=== PATIENT | female | born 2000 | race Two or more races ===

== ENCOUNTER 2021-02-22 16:21 | Inpatient (IN) | payer BC ==
[~2021-02-22] VITALS: Ht 157.5 cm; Wt 79.6 kg
[2021-02-22] MEDS ORDERED: cefTRIAXone 1GM/50ML D5W 50 ML IV ONE (17:00)
[2021-02-22] MEDS ORDERED: metroNIDAZOLE 500MG/100ML 100 ML IV ONE (17:00)
[2021-02-22] MEDS ORDERED: MORPHINE SULFATE INJECTION 2 MG/ML SYRG IV PRN (17:00)
[2021-02-22 17:42] VITALS: BP 128/43
[2021-02-22] MEDS: SODIUM CHLORIDE 0.9% 1,000 ML IV SCH (17:49)
[2021-02-22 18:08] LABS: Hematocrit 40.1 % (36.0-46.0); Hemoglobin 13.6 g/dL (12.2-16.2); Mean Corpuscular Hgb Conc. 33.9 g/dL (32.0-36.0); Mean Corpuscular Volume 85.7 fL (80.0-100.0); Red Blood Cells 4.67 10^6/uL (4.0-5.20); Red Cell Distribution Width 12.6 % (11.8-14.3); White Blood Cell 12.8 10^3/uL (4.4-10.8)
[2021-02-22 18:19] LABS: Albumin 3.3 g/dL (3.4-5.0); Calcium 8.9 mg/dL (8.5-10.1)
[2021-02-22 18:22] VITALS: BP 124/47
[2021-02-22] MEDS: ACETAMINOPHEN 325 MG TAB PO PRN ×2 (18:22→23:14)
[2021-02-22 18:23] LABS: BUN/Creatinine Ratio 17.2; Bilirubin, Total 0.4 mg/dL (0.2-1.0)
[2021-02-22 18:24] LABS: INR 1.1 (0.9-1.15); Partial Thromboplastin Time 30.1 sec (23.6-33.0)
[2021-02-22 18:26] LABS: Basophils % (manual) 0 (0.0-2.0); Blast Cells 0; Eosinophils % (manual) 0 (0-7); Myelocytes % 0; Promyelocytes % 0; Reactive Lymphocytes 0
[2021-02-22 19:00] LABS: Band Neutrophils % (manual) 3; Lymphocytes % (manual) 18 (10.0-50.0); Metamyelocytes % 2; Monocytes % (manual) 3 (0-12)
[2021-02-22] MEDS: metroNIDAZOLE 500MG/100ML 100 ML IV SCH (22:57)
[2021-02-23 05:00] VITALS: BP 132/67
[2021-02-23] MEDS: metroNIDAZOLE 500MG/100ML 100 ML IV SCH ×3 (06:31→22:00)
[2021-02-23 06:59] LABS: Urine Bacteria FEW /hpf (None Seen); Urine Blood Negative /uL (Negative); Urine Mucus FEW (None Seen); Urine Specific Gravity 1.017 (1.001-1.035); Urine WBC 1 /hpf (0 - 5)
[2021-02-23] MEDS: SODIUM CHLORIDE 0.9% 1,000 ML IV SCH ×2 (07:57→16:40)
[2021-02-23] MEDS: cefTRIAXone 1GM/50ML D5W 50 ML IV SCH (08:47)
[2021-02-23 09:00] VITALS: BP 122/78
[2021-02-23] MEDS ORDERED: ACET-1304 PO (10:07)
[2021-02-23] MEDS ORDERED: fentaNYL CITRATE 100 MCG/2 ML VL ONE (10:23)
[2021-02-23] MEDS ORDERED: MIDAZOLAM HCL 2MG/2ML 2ml VIAL (1mg/ml) ONE ×2 (10:24→11:25)
[2021-02-23] MEDS ORDERED: HYDROmorphone HCL 2 MG/ML VL ONE (10:58)
[2021-02-23] MEDS ORDERED: PROPOFOL 10 MG/ML 20 ML IV ONE (11:14)
[2021-02-23] MEDS ORDERED: ONDANSETRON HCL 4 MG/2 ML VIAL IV PRN (11:15)
[2021-02-23] MEDS ORDERED: HYDROmorphone HCL 2 MG/ML VL IV PRN (11:15)
[2021-02-23] MEDS ORDERED: NEOSTIGMINE 1 MG/ML INJ (10mg/10ML VIAL) IV ONE (15:46)
[2021-02-23] MEDS ORDERED: ROCURONIUM 10MG/ML 10ML VIAL IV ONE (15:46)
[2021-02-23] MEDS ORDERED: GLYCOPYRROLATE 0.2 MG/ML 1ML VIAL IV ONE (15:46)
[2021-02-23] MEDS ORDERED: ONDANSETRON HCL 4 MG/2 ML VIAL IV ONE (15:46)
[2021-02-23] MEDS: ONDANSETRON HCL 4 MG/2 ML VIAL IV PRN (15:51)
[2021-02-23] MEDS: MORPHINE SULFATE INJECTION 2 MG/ML SYRG IV PRN ×2 (15:51→20:48)
[2021-02-23 17:00] VITALS: BP 104/54
[2021-02-23 22:00] VITALS: BP 106/55
[2021-02-24] MEDS: SODIUM CHLORIDE 0.9% 1,000 ML IV SCH (01:08)
[2021-02-24 05:00] VITALS: BP 111/72
[2021-02-24] MEDS: MORPHINE SULFATE INJECTION 2 MG/ML SYRG IV PRN ×2 (05:32→14:56)
[2021-02-24] MEDS: metroNIDAZOLE 500MG/100ML 100 ML IV SCH ×3 (05:32→21:04)
[2021-02-24 05:49] LABS: Calcium 8.4 mg/dL (8.5-10.1); Potassium 3.9 mmol/L (3.5-5.1)
[2021-02-24 05:56] LABS: Basophils # (auto) 0 10 ^3/uL (0-0.2); Basophils % (auto) 0.6 % (0.0-2.0); Eosinophils # (auto) 0.1 10 ^3/uL (0-0.8); Eosinophils % (auto) 0.9 % (0.0-7.0); Hematocrit 39.3 % (36.0-46.0); Hemoglobin 13.8 g/dL (12.2-16.2); Lymphocytes # (auto) 3.1 10 ^3/uL (0.4-5.4); Lymphocytes % (auto) 36.8 % (10.0-50.0); Mean Corpuscular Hemoglobin 30.4 pg (28.0-32.0); Mean Corpuscular Hgb Conc. 35.2 g/dL (32.0-36.0); Mean Corpuscular Volume 86.4 fL (80.0-100.0); Monocytes # (auto) 0.7 10 ^3/uL (0-1.3); Monocytes % (auto) 7.9 % (0.0-12.0); Neutrophils # (auto) 4.5 10 ^3/uL (1.6-8.6); Neutrophils % (auto) 53.8 % (37.0-80.0); Red Blood Cells 4.54 10^6/uL (4.0-5.20); Red Cell Distribution Width 12.6 % (11.8-14.3); White Blood Cell 8.4 10^3/uL (4.4-10.8)
[2021-02-24 08:30] VITALS: BP 102/52
[2021-02-24] MEDS: cefTRIAXone 1GM/50ML D5W 50 ML IV SCH (08:35)
[2021-02-24] MEDS: HYDROcodone-ACET 5/325MG TAB PO PRN ×2 (08:36→17:04)
[2021-02-24] MEDS: DOCUSATE SOD 100 MG CAP PO PRN (11:17)
[2021-02-24 12:47] VITALS: BP 89/56
[2021-02-24 13:15] VITALS: BP 114/64
[2021-02-24 16:53] VITALS: BP 129/76
[2021-02-24 22:00] VITALS: BP 109/56
[2021-02-25 05:00] VITALS: BP 104/74
[2021-02-25] MEDS: metroNIDAZOLE 500MG/100ML 100 ML IV SCH ×3 (05:26→22:17)
[2021-02-25 09:00] VITALS: BP 128/76
[2021-02-25] MEDS: DOCUSATE SOD 100 MG CAP PO PRN (09:08)
[2021-02-25] MEDS: cefTRIAXone 1GM/50ML D5W 50 ML IV SCH (09:08)
[2021-02-25 13:00] VITALS: BP 122/80
[2021-02-25 16:48] VITALS: BP 136/84
[2021-02-25 22:00] VITALS: BP 143/87
[2021-02-26 04:54] VITALS: BP 122/62
[2021-02-26] MEDS: metroNIDAZOLE 500MG/100ML 100 ML IV SCH ×3 (06:20→22:50)
[2021-02-26] MEDS: cefTRIAXone 1GM/50ML D5W 50 ML IV SCH (08:37)
[2021-02-26 09:00] VITALS: BP 120/68
[2021-02-26 12:41] VITALS: BP 118/66
[2021-02-26 16:31] VITALS: BP 119/66
[2021-02-26 22:00] VITALS: BP 125/84
[2021-02-27 04:58] VITALS: BP 122/71
[2021-02-27] MEDS: metroNIDAZOLE 500MG/100ML 100 ML IV SCH (06:27)
[2021-02-27 08:43] VITALS: BP 109/57
[2021-02-27] MEDS: cefTRIAXone 1GM/50ML D5W 50 ML IV SCH (09:01)
[2021-02-27] MEDS: ONDANSETRON HCL 4 MG/2 ML VIAL IV PRN (10:48)
[2021-02-27] MEDS: HYDROcodone-ACET 5/325MG TAB PO PRN (10:49)
[2021-02-27] MEDS ORDERED: ONDANSETRON ODT 4 MG TAB PO PRN (11:30)
[2021-02-27 13:00] VITALS: BP 117/79
[2021-02-27] MEDS: metroNIDAZOLE 500 MG TAB PO SCH ×2 (13:40→21:30)
[2021-02-27 17:00] VITALS: BP 119/77
[2021-02-27 22:00] VITALS: BP 122/67
[2021-02-28 05:00] VITALS: BP 112/55
[2021-02-28] MEDS: metroNIDAZOLE 500 MG TAB PO SCH (06:04)
[2021-02-28 09:00] VITALS: BP_SYST 122; BP_SYST 131; BP_DIAS 67; BP_DIAS 69
[2021-02-28] MEDS ORDERED: levoFLOXacin 500 MG TAB PO SCH (10:00)
[2021-02-28 11:55] VITALS: BP 131/69
[2021-02-28 12:33] VITALS: BP 124/80
== END 2021-02-28 13:17 | disposition home or self-care (01) | DRG 603 ==
LOC: CENTRAL 16:21
PROVIDERS: ADMIT Internal Medicine; ATTEND Internal Medicine
PROC: 0H98XZZ Drainage of Buttock Skin, External Approach (ICD-10-PCS; principal; 2021-02-23 10:21)
DX: L05.01 Pilonidal cyst with abscess (principal); E66.9 Obesity, unspecified; Z20.822 Contact with and (suspected) exposure to COVID-19; Z68.32 Body mass index [BMI] 32.0-32.9, adult
CPT/HCPCS: 36415; 80048; 80053; 81001; 84702; 85007; 85025; 85027; 85610; 85730; 87070; 87075; 87205; G0378; J0696; J2250; J2405; J2704; J3490

== ENCOUNTER → 2022-09-25 | Outpatient (CLI) | payer BC ==
[~2022-09-25] MED LIST: ACET-1304 PO
[2022-09-25 15:37] LABS: Basophils # (auto) 0 10 ^3/uL (0-0.2); Basophils % (auto) 0.3 % (0.0-2.0); Eosinophils # (auto) 0.1 10 ^3/uL (0-0.8); Eosinophils % (auto) 0.6 % (0.0-7.0); Hematocrit 38.2 % (36.0-46.0); Hemoglobin 13.1 g/dL (12.2-16.2); Lymphocytes # (auto) 2.3 10 ^3/uL (0.4-5.4); Lymphocytes % (auto) 22.4 % (10.0-50.0); Mean Corpuscular Hgb Conc. 34.3 g/dL (32.0-36.0); Mean Corpuscular Volume 84.4 fL (80.0-100.0); Monocytes # (auto) 0.9 10 ^3/uL (0-1.3); Monocytes % (auto) 9.1 % (0.0-12.0); Neutrophils % (auto) 67.6 % (37.0-80.0); Nucleated Red Blood Cells % 0.1 %; Red Blood Cells 4.52 10^6/uL (4.0-5.20); Red Cell Distribution Width 12.9 % (11.8-14.3); White Blood Cell 10.4 10^3/uL (4.4-10.8)
[2022-09-25 15:48] LABS: Albumin 3.7 g/dL (3.4-5.0); Calcium 8.7 mg/dL (8.5-10.1)
[2022-09-25 15:52] LABS: BUN/Creatinine Ratio 28.3 (10.0-20.0); Bilirubin, Total 0.4 mg/dL (0.2-1.0); Total Protein 7.1 g/dL (6.4-8.2)
[2022-09-25 16:12] LABS: Hepatitis B Surface Antibody Positive (Negative)
[2022-09-25 16:51] LABS: Hepatitis A Total Antibody Positive (Negative)
[2022-09-25 18:45] LABS: Hepatitis A Ab IgM Negative; Hepatitis B Core IgM Negative; Hepatitis C Antibody Negative (Negative)
== END | disposition home or self-care (01) ==
LOC: LAB 15:04
PROVIDERS: ATTEND Internal Medicine
DX: L05.01 Pilonidal cyst with abscess (principal); J32.9 Chronic sinusitis, unspecified; R53.83 Other fatigue
CPT/HCPCS: 36415; 80053; 84439; 84443; 85025; 85652; 86704; 86705; 86706; 86708; 86709; 86803; 87340

== ENCOUNTER 2022-09-28 12:19 | Inpatient (IN) | payer BC ==
[~2022-09-28] VITALS: Ht 157.5 cm; Wt 88.6 kg
[2022-09-28 13:32] LABS: Basophils # (auto) 0.1 10 ^3/uL (0-0.2); Basophils % (auto) 0.9 % (0.0-2.0); Eosinophils # (auto) 0.1 10 ^3/uL (0-0.8); Eosinophils % (auto) 0.5 % (0.0-7.0); Hematocrit 43.2 % (36.0-46.0); Hemoglobin 14.8 g/dL (12.2-16.2); Lymphocytes # (auto) 2.4 10 ^3/uL (0.4-5.4); Lymphocytes % (auto) 22.1 % (10.0-50.0); Mean Corpuscular Hemoglobin 28.8 pg (28.0-32.0); Mean Corpuscular Hgb Conc. 34.3 g/dL (32.0-36.0); Mean Corpuscular Volume 84.1 fL (80.0-100.0); Monocytes # (auto) 0.8 10 ^3/uL (0-1.3); Monocytes % (auto) 7.6 % (0.0-12.0); Neutrophils # (auto) 7.5 10 ^3/uL (1.6-8.6); Neutrophils % (auto) 68.9 % (37.0-80.0); Nucleated Red Blood Cells % 0.2 %; Red Blood Cells 5.13 10^6/uL (4.0-5.20); Red Cell Distribution Width 12.8 % (11.8-14.3); White Blood Cell 10.8 10^3/uL (4.4-10.8)
[2022-09-28 13:53] LABS: INR 1.07 (0.9-1.15); Partial Thromboplastin Time 31.9 sec (24.6-33.4)
[2022-09-28 14:13] LABS: Albumin 4.1 g/dL (3.4-5.0); Calcium 8.9 mg/dL (8.5-10.1); Potassium 4.2 mmol/L (3.5-5.1)
[2022-09-28 14:19] LABS: BUN/Creatinine Ratio 21.9 (10.0-20.0); Bilirubin, Total 0.4 mg/dL (0.2-1.0); Total Protein 7.4 g/dL (6.4-8.2)
[2022-09-28] MEDS ORDERED: VANCOMYCIN 1GM/250ML 250 ML IV ONE (14:30)
[2022-09-28] MEDS ORDERED: ACETAMINOPHEN 500 MG TAB PO PRN (17:15)
[2022-09-28] MEDS ORDERED: MORPHINE SULFATE INJ 2 MG/ml SYRG IV PRN (17:15)
[2022-09-28] MEDS ORDERED: DOCUSATE SOD 100 MG CAP PO PRN (17:15)
[2022-09-28] MEDS: SODIUM CHLORIDE 0.9% 1,000 ML IV SCH (18:51)
[2022-09-28] MEDS: levoFLOXacin 500MG 100 ML IV SCH (18:51)
[2022-09-28] MEDS: HYDROcodone-ACET 5/325MG TAB PO PRN (20:22)
[2022-09-28] MEDS: metroNIDAZOLE 500MG/100ML 100 ML IV SCH (22:27)
[2022-09-28] MEDS ORDERED: METR500T PO (23:08)
[2022-09-28] MEDS ORDERED: TRAM50TA2 PO (23:08)
[2022-09-28] MEDS: traMADol HCL 50 MG TAB PO PRN (23:39)
[2022-09-29] MEDS: SODIUM CHLORIDE 0.9% 1,000 ML IV SCH ×3 (03:15→23:15)
[2022-09-29] MEDS: ONDANSETRON HCL 4 MG/2 ML VIAL IV PRN ×3 (03:24→18:35)
[2022-09-29 05:00] VITALS: BP 122/82
[2022-09-29] MEDS: metroNIDAZOLE 500MG/100ML 100 ML IV SCH ×3 (05:18→22:51)
[2022-09-29] MEDS: traMADol HCL 50 MG TAB PO PRN (05:48)
[2022-09-29 08:00] VITALS: BP 112/57
[2022-09-29] MEDS: levoFLOXacin 500MG 100 ML IV SCH (09:45)
[2022-09-29] MEDS: HYDROmorphone HCL 2 MG/ML VL/or syr IV PRN ×5 (09:46→22:50)
[2022-09-29] MEDS ORDERED: BUPIVACAINE W/ EPINEPH 0.25% INJ 50ML MDV ONE (10:45)
[2022-09-29] MEDS ORDERED: LIDOCAINE 1% HCL (LOCAL ANESTH.) INJ 20ML MDV ONE (10:45)
[2022-09-29] MEDS ORDERED: POVIDONE IODINE 10 % TOPICAL OINT 30GM TOP ONE (11:44)
[2022-09-29 12:00] VITALS: BP 108/60
[2022-09-29] MEDS ORDERED: fentaNYL CITRATE 100 MCG/2 ML VL ONE (12:01)
[2022-09-29] MEDS ORDERED: MIDAZOLAM HCL 2MG/2ML 2ml VIAL (1mg/ml) ONE (12:01)
[2022-09-29] MEDS ORDERED: LIDOCAINE 2% JELLY 11ml (GLYDO) ONE (12:02)
[2022-09-29] MEDS ORDERED: MEPERIDINE HCL (50 MG/ML) 1 ML VIAL ONE (12:02)
[2022-09-29] MEDS ORDERED: DexAMETHasone SOD PHOS 10MG/1ML VIAL INJ ONE (12:28)
[2022-09-29] MEDS ORDERED: PROPOFOL 10 MG/ML 20 ML IV ONE (12:28)
[2022-09-29] MEDS ORDERED: ceFAZolin 1GM VL ONE (12:36)
[2022-09-29 12:45] LABS: Urine Bacteria NONE SEEN /hpf (None Seen); Urine Blood Negative /uL (Negative); Urine Mucus FEW (None Seen); Urine Specific Gravity 1.038 (1.001-1.035); Urine WBC 3 /hpf (0 - 5)
[2022-09-29] MEDS ORDERED: SUGAMMADEX 200mg/2ml Vial (100MG/ML) IV ONE (13:13)
[2022-09-29] MEDS ORDERED: LABETALOL HCL 5 MG/ML 4ML SYRINGE IV PRN (13:15)
[2022-09-29] MEDS ORDERED: MORPHINE SULFATE 4 MG/ML SYR/VIAL IV PRN (13:15)
[2022-09-29] MEDS ORDERED: ePHEDrine SULFATE 50 MG/ML AMP IV PRN (13:15)
[2022-09-29] MEDS ORDERED: ONDANSETRON HCL 4 MG/2 ML VIAL IV PRN (13:15)
[2022-09-29] MEDS ORDERED: MIDAZOLAM HCL 2MG/2ML 2ml VIAL (1mg/ml) IV PRN (13:15)
[2022-09-29] MEDS ORDERED: KETOROLAC TROMETH 30 MG/ML 1ML VIAL IV ONE (13:15)
[2022-09-29] MEDS ORDERED: METOCLOPRAMIDE HCL 5MG/ml INJ 2ml VIAL IV PRN (13:15)
[2022-09-29] MEDS: HYDROcodone-ACET 5/325MG TAB PO PRN (15:00)
[2022-09-29 16:00] VITALS: BP 103/61
[2022-09-29 22:00] VITALS: BP 121/65
[2022-09-30 05:07] VITALS: BP 104/55
[2022-09-30] MEDS: metroNIDAZOLE 500MG/100ML 100 ML IV SCH ×3 (05:52→23:01)
[2022-09-30] MEDS: HYDROmorphone HCL 2 MG/ML VL/or syr IV PRN ×2 (05:53→21:46)
[2022-09-30 09:00] VITALS: BP 105/59
[2022-09-30] MEDS: SODIUM CHLORIDE 0.9% 1,000 ML IV SCH ×2 (09:15→21:50)
[2022-09-30] MEDS: levoFLOXacin 500MG 100 ML IV SCH (09:55)
[2022-09-30 10:02] LABS: Basophils # (auto) 0 10 ^3/uL (0-0.2); Basophils % (auto) 0.1 % (0.0-2.0); Eosinophils # (auto) 0 10 ^3/uL (0-0.8); Hematocrit 36.7 % (36.0-46.0); Lymphocytes # (auto) 1.3 10 ^3/uL (0.4-5.4); Lymphocytes % (auto) 10.9 % (10.0-50.0); Mean Corpuscular Hemoglobin 29.6 pg (28.0-32.0); Mean Corpuscular Hgb Conc. 35.6 g/dL (32.0-36.0); Mean Corpuscular Volume 83.2 fL (80.0-100.0); Monocytes # (auto) 0.8 10 ^3/uL (0-1.3); Neutrophils # (auto) 9.9 10 ^3/uL (1.6-8.6); Nucleated Red Blood Cells % 0.1 %; Red Blood Cells 4.41 10^6/uL (4.0-5.20); Red Cell Distribution Width 12.4 % (11.8-14.3); White Blood Cell 12.1 10^3/uL (4.4-10.8)
[2022-09-30 10:30] LABS: Calcium 8.9 mg/dL (8.5-10.1); Potassium 4.2 mmol/L (3.5-5.1)
[2022-09-30 10:32] LABS: BUN/Creatinine Ratio 16.7 (10.0-20.0)
[2022-09-30 13:00] VITALS: BP 113/63
[2022-09-30 16:46] VITALS: BP 101/50
[2022-09-30] MEDS: ONDANSETRON HCL 4 MG/2 ML VIAL IV PRN (21:46)
[2022-09-30 22:00] VITALS: BP 118/73
[2022-09-30] MEDS: HYDROcodone-ACET 5/325MG TAB PO PRN (22:30)
[2022-10-01 05:00] VITALS: BP 100/66
[2022-10-01] MEDS: metroNIDAZOLE 500MG/100ML 100 ML IV SCH ×3 (05:32→21:44)
[2022-10-01 05:33] LABS: Basophils # (auto) 0 10 ^3/uL (0-0.2); Basophils % (auto) 0.6 % (0.0-2.0); Eosinophils # (auto) 0 10 ^3/uL (0-0.8); Eosinophils % (auto) 0.1 % (0.0-7.0); Hematocrit 37.4 % (36.0-46.0); Hemoglobin 13.3 g/dL (12.2-16.2); Lymphocytes # (auto) 1.6 10 ^3/uL (0.4-5.4); Lymphocytes % (auto) 29.6 % (10.0-50.0); Mean Corpuscular Hgb Conc. 35.6 g/dL (32.0-36.0); Mean Corpuscular Volume 84.3 fL (80.0-100.0); Monocytes # (auto) 0.4 10 ^3/uL (0-1.3); Monocytes % (auto) 7.7 % (0.0-12.0); Neutrophils # (auto) 3.4 10 ^3/uL (1.6-8.6); Nucleated Red Blood Cells % 0.1 %; Red Blood Cells 4.44 10^6/uL (4.0-5.20); Red Cell Distribution Width 12.6 % (11.8-14.3); White Blood Cell 5.5 10^3/uL (4.4-10.8)
[2022-10-01 05:37] LABS: Potassium 3.9 mmol/L (3.5-5.1)
[2022-10-01 05:40] LABS: BUN/Creatinine Ratio 11.9 (10.0-20.0); Calcium 8.2 mg/dL (8.5-10.1)
[2022-10-01] MEDS: HYDROmorphone HCL 2 MG/ML VL/or syr IV PRN ×4 (05:48→14:26)
[2022-10-01] MEDS: SODIUM CHLORIDE 0.9% 1,000 ML IV SCH ×2 (06:53→07:53)
[2022-10-01 09:00] VITALS: BP 100/77
[2022-10-01] MEDS: levoFLOXacin 500MG 100 ML IV SCH (09:51)
[2022-10-01 13:00] VITALS: BP 112/62
[2022-10-01] MEDS ORDERED: SODIUM CHLORIDE 0.9% 1,000 ML IV SCH (14:45)
[2022-10-01 17:00] VITALS: BP 111/74
[2022-10-01 22:00] VITALS: BP 108/69
[2022-10-01] MEDS ORDERED: MELATONIN 5 MG TAB PO ONE (22:00)
[2022-10-02 05:00] VITALS: BP 119/73
[2022-10-02] MEDS: traMADol HCL 50 MG TAB PO PRN (05:49)
[2022-10-02] MEDS: metroNIDAZOLE 500MG/100ML 100 ML IV SCH (05:50)
[2022-10-02 09:00] VITALS: BP 127/76
[2022-10-02] MEDS: levoFLOXacin 500MG 100 ML IV SCH (10:14)
[2022-10-02 12:12] VITALS: BP 119/74
[2022-10-02 12:37] VITALS: BP 121/76
[2022-10-02] MEDS ORDERED: metroNIDAZOLE 500 MG TAB PO SCH (14:00)
== END 2022-10-02 15:30 | disposition home or self-care (01) | DRG 571 ==
LOC: EEVIPCON 12:19 → ER 12:19 → OVERFLOW 17:08 → CENTRAL 21:07
PROVIDERS: ADMIT Nurse Practitioner Acute Care; ATTEND Internal Medicine
PROC: 0JB90ZZ Excision of Buttock Subcutaneous Tissue and Fascia, Open Approach (ICD-10-PCS; principal; 2022-09-29 12:06)
PROC: 05HD33Z Insertion of Infusion Device into Right Cephalic Vein, Percutaneous Approach (ICD-10-PCS; 2022-09-30)
PROC: B54MZZA Ultrasonography of Right Upper Extremity Veins, Guidance (ICD-10-PCS; 2022-09-30)
DX: L05.01 Pilonidal cyst with abscess (principal); L03.317 Cellulitis of buttock; E66.9 Obesity, unspecified; M53.3 Sacrococcygeal disorders, not elsewhere classified; Z68.35 Body mass index [BMI] 35.0-35.9, adult
CPT/HCPCS: 36415; 71045; 74177; 80048; 80053; 81001; 84702; 85025; 85610; 85730; 86850; 86900; 86901; 87070; 87075; 87205; 93005; 96365; 96366; G0378; J0690; J1100; J1956; J2001; J2250; J2405; J2704; J3490